=== PATIENT | male | born 1955 ===

== ENCOUNTER 2020-05-25 07:30 | Inpatient (IN) ==
[2020-06-01] MEDS ORDERED: Buffered Lidocaine 1% SYRIN 1 ml INTRADERM ONE (06:00)
[2020-06-01] MEDS ORDERED: Lactated Ringers 1000 ml BAG 1,000 ML IV SCH (06:00)
[2020-06-01] MEDS ORDERED: Lidocaine 2% PF 5 ML VIAL ONE (10:52)
[2020-06-01] MEDS ORDERED: ceFAZolin 2 GM PREMIX 2 GM/50 ML BAG ONE (10:52)
[2020-06-01] MEDS ORDERED: Propofol 10 MG/ML 20 ML BTL ONE ×3 (10:52→16:41)
[2020-06-01] MEDS ORDERED: Midazolam 2 mg/2 ml VIAL 1 mg/ml 2 ml VIAL (2 mg) ONE (10:53)
[2020-06-01] MEDS ORDERED: Rocuronium 50 mg VIAL 10 mg/ml 5 ml VIAL (50 mg) ONE (10:53)
[2020-06-01] MEDS ORDERED: Succinylcholine 200 mg VIAL 20 mg/ml 10 ml VIAL (200 mg) ONE (10:53)
[2020-06-01] MEDS ORDERED: fentaNYL 250 mcg/5 ml 50 MCG/ML 5 ml VIAL (250 MCG) ONE (10:53)
[2020-06-01] MEDS ORDERED: Remifentanil 2 MG VIAL ONE ×2 (10:53→17:18)
[2020-06-01] MEDS ORDERED: Lidocaine 1% w EPI 1:200,000 SDV 30 ML VIAL ONE (14:31)
[2020-06-01] MEDS ORDERED: Bacitracin INJECTION 50,000 UNITS ONE (14:32)
[2020-06-01] MEDS ORDERED: Gelfoam Sponge SIZE 100 SPONGE ONE (14:32)
[2020-06-01] MEDS ORDERED: Thrombin 5,000 UNITS 1 APPLIC KIT - topical use - TOPICAL ONE (14:32)
[2020-06-01] MEDS ORDERED: ceFAZolin VIAL VIAL ONE (14:32)
[2020-06-01] MEDS ORDERED: EPHEDrine (Pressors) 50 MG/ML VIAL ONE (16:36)
[2020-06-01] MEDS ORDERED: Dexamethasone IV 4 MG/ML VIAL 1 ml VIAL ONE ×2 (16:36→18:35)
[2020-06-01] MEDS ORDERED: Phenylephrine 40 mcg/mL 10mL (400mcg) SYRINGE ONE (16:38)
[2020-06-01] MEDS ORDERED: Propofol 10 mg/ml 100 ML BTL 100 ML ONE (16:56)
[2020-06-01] MEDS ORDERED: Naloxone 0.4 mg VIAL 0.4 mg/ml 1 ml VIAL IV PRN (17:16)
[2020-06-01] MEDS ORDERED: DiMENhydriNATE IV 50 mg/ml 1 ml VIAL IV PUSH PRN (17:16)
[2020-06-01] MEDS ORDERED: Acetaminophen IV 1 GM/100ML 100 ML ONE (19:02)
[2020-06-01] MEDS ORDERED: HYDROcodone/ACETAMIN 5/325 mg TAB PO PRN (19:36)
[2020-06-01] MEDS ORDERED: Magnesium Hydroxide LIQ 30 ML UDC PO PRN (19:36)
[2020-06-01] MEDS ORDERED: Ondansetron 4 mg VIAL 2 MG/ML 2 ml VIAL IV PRN (19:36)
[2020-06-01] MEDS ORDERED: Benzocaine/Menthol LOZ MT PRN (19:45)
[2020-06-01] MEDS ORDERED: NS 0.9% 1000 ml BAG 1,000 ML IV SCH (19:45)
[2020-06-01] MEDS ORDERED: HYDROmorphone 1 MG/1 ML SYRINGE ONE (20:17)
[2020-06-01] MEDS: HYDROmorphone 1 MG/1 ML SYRINGE IV PRN ×3 (20:18→20:45)
[2020-06-01] MEDS ORDERED: Albuterol 2.5mg/3 ml (0.083%) NEB.SOLN INH PRN (22:30)
[2020-06-01] MEDS: Polyethylene Glycol 3350 17 GM PACKET PO SCH (22:50)
[2020-06-01] MEDS: Acetaminophen IV 1 GM/100ML 100 ML IVPB SCH (23:49)
[2020-06-02] MEDS: ceFAZolin 2 GM PREMIX 2 GM/50 ML BAG IVPB SCH ×3 (00:01→15:55)
[2020-06-02 05:33] LABS: ABS Lymphocytes 0.5 10^3/ul (1.0-4.8); ABS Monocytes 0.1 10^3/ul (0-0.8); ABS Neutrophils 7.2 10^3/ul (1.5-7.7); Hematocrit 42 % (42-52); Hemoglobin 14.8 g/dL (14.0-18.0); Lymphocyte % 5.7 %; Mean Corpuscular HGB Conc 35 g/dL (31-36); Mean Corpuscular Hemoglobin 33 pg (27-31); Mean Corpuscular Volume 93 fL (80-94); Mean Platelet Volume 6.8 fL (7.4-10.4); Nucleated Red Blood Cells % 0.1; Platelet Count 229 10^3/uL (150-450); Red Blood Count 4.56 10^6 /uL (4.18-5.48); Red Cell Distribution Width 14 % (10-15); White Blood Count 7.8 10^3/uL (3.5-10.8)
[2020-06-02] MEDS: Acetaminophen IV 1 GM/100ML 100 ML IVPB SCH ×2 (05:42→14:05)
[2020-06-02 05:49] LABS: Albumin 4.1 g/dL (3.2-5.2); Albumin/Globulin Ratio 2.1 (1-3); BUN/Creatinine Ratio 15.1 (8-20); Calcium 9.1 mg/dL (8.6-10.3); EGFR African American 107.3 (>60); EGFR Non-African American 88.7 (>60); Potassium 4.3 mmol/L (3.5-5.0); Total Bilirubin 0.6 mg/dL (0.2-1.0); Total Protein 6.1 g/dL (6.4-8.9)
[2020-06-02] MEDS: Polyethylene Glycol 3350 17 GM PACKET PO SCH ×2 (08:19→21:51)
[2020-06-02] MEDS: Enoxaparin 40 MG/0.4 ML SYR SUBCUT SCH (08:19)
[2020-06-03] MEDS: ceFAZolin 2 GM PREMIX 2 GM/50 ML BAG IVPB SCH ×2 (00:17→08:25)
[2020-06-03 08:13] VITALS: BP 149/79
[2020-06-03] MEDS: Polyethylene Glycol 3350 17 GM PACKET PO SCH (08:25)
[2020-06-03] MEDS: Enoxaparin 40 MG/0.4 ML SYR SUBCUT SCH (08:25)
== END 2020-06-03 10:55 | disposition home or self-care (01) | DRG 473 ==
LOC: AA 06-01 10:25 → SSU 06-01 21:36
PROVIDERS: ADMIT Neurological Surgery; ATTEND Neurological Surgery